=== PATIENT | male | born 1990 | race Two or more races ===

== ENCOUNTER 2023-01-23 11:02 | Emergency (ER) | payer SELFPAY ==
[2023-01-23] MEDS ORDERED: Orphenadrine 100 MG Tab.ER PO ONE (11:28)
[2023-01-23] MEDS ORDERED: Ketorolac 30 MG/ML SDV IVPUSH ONE (13:32)
== END 2023-01-23 14:28 | disposition home or self-care (01) ==
LOC: JD.ED 11:02
DX: M54.50 Low back pain, unspecified (principal); X50.0XXA Overexertion from strenuous movement or load, initial encounter
CPT/HCPCS: 72131; 96374; 99284; A9270; J1885